=== PATIENT | female | born 1995 | race Caucasian/White ===

== ENCOUNTER 2019-01-01 12:10 | Inpatient (IN) | payer OTHER ==
[~2019-01-01] VITALS: Ht 162.6 cm; Wt 68.0 kg
[2019-01-01 12:20] VITALS: BP 113/69
--- NOTE | 2019-01-01 13:15 | NUR ---
PATIENT AMBULATED TO ER BED 2.
--- NOTE | 2019-01-01 13:20 | NUR ---
23 Y FEMALE PT C/O R FLANK PAIN RADIATES TO BACK X6 DAYS, PT IS X17 WEEKS , , LMP - 08/31/19 . PT DESCRIBES PAIN SHARP 06/08. ALSO REPORTS FEVER/CHILLS/NIGHT SWEATS, DENIES FEVER, TOOK TYLENOL X1 HOUR AGO. NO OTHER COMPLAINTS. AA0X4. VSS AT THIS TIME. BED IS DOWN, LOCKED, BED RAIL X 1, ERMD NOTIFIED. PMH---DM ALLERGIES---PCN
--- NOTE | 2019-01-01 13:22 | NUR ---
MOTHER AT BEDSIDE
[2019-01-01 14:19] LABS: APPEARANCE,URINE SL CLOUDY (CLEAR); BILIRUBIN,URINE NEGATIVE (NEGATIVE); BLOOD, URINE 1+ (NEGATIVE); COLOR,URINE YELLOW (YELLOW); LEUKOCYTE ESTERASE ,URINE 3+ (NEGATIVE); NITRITE, URINE POSITIVE (NEGATIVE); PH,URINE 6.5 (5.0-9.0); UGLUCOSE NEGATIVE (NEGATIVE)
[2019-01-01] MEDS ORDERED: NACL 0.9% 1,000 ML IV ONE (14:30)
[2019-01-01 14:35] LABS: WBC,URINE >25 (MANY) /HPF (0-5)
--- NOTE | 2019-01-01 15:03 | NUR ---
STREP THROAT COLLECTED
[2019-01-01 15:05] LABS: BASOPHILS % (AUTO) 0.1 % (0.0-2.0); EOSINOPHILS % (AUTO) 0.1 % (0.0-4.0); HEMATOCRIT 34.3 % (36-48); HEMOGLOBIN 11.4 g/dL (12.0-16.0); LYMPHOCYTES # (AUTO) 0.8 K/uL (2.5-16.5); LYMPHOCYTES % (AUTO) 5.9 % (20.5-51.1); MEAN CORPUSCULAR HEMOGLOBIN 29 pg (27-31); MEAN CORPUSCULAR HGB CONC 33 g/dL (33-37); MEAN CORPUSCULAR VOLUME 88.2 fL (80-94); MONOCYTES # (AUTO) 1.4 K/uL (0.8-1.0); MONOCYTES % (AUTO) 10.1 % (1.7-9.3); NEUTROPHILS # (AUTO) 11.8 K/uL (1.8-7.7); NEUTROPHILS % (AUTO) 83.8 % (42.2-75.2); PLATELET COUNT (AUTO) 195 K/uL (140-450); RED BLOOD CELL COUNT(AUTO) 3.89 MIL/uL (4.20-5.40); WHITE BLOOD COUNT (AUTO) 14.1 K/uL (4.8-10.8)
[2019-01-01 15:38] LABS: ANION GAP 14.4 (8-16); CARBON DIOXIDE 22.8 mmol/L (21-32); CREATININE 0.6 mg/dL (0.6-1.3); POTASSIUM 3.2 mmol/L (3.5-5.1)
[2019-01-01 15:41] LABS: TOTAL BILIRUBIN 0.2 mg/dL (0.0-1.0)
--- NOTE | 2019-01-01 16:30 | NUR ---
TACHYCARDIA HR IN THE 110s. PT IS AA0X4.
[2019-01-01] MEDS ORDERED: cefTRIAXone 1,000 MG VIAL ONE (18:15)
--- NOTE | 2019-01-01 18:55 | NUR ---
PT SLEEPING IN BED.
--- NOTE | 2019-01-01 19:30 | NUR ---
IV WONT. FLUSH OR RU N ANTIBIOTICS, NEW IV STARTED
--- NOTE | 2019-01-01 20:20 | NUR ---
Patient will be admitted to care of . Admited to [facility]. Will go to room 105B. Belongings list completed. Report to MARY.
[2019-01-01 21:15] VITALS: BP 115/52
--- NOTE | 2019-01-01 21:15 | NUR ---
PT ARRIVED VIA GURNEY AND AMBULATED TO BED. RECEIVED REPORT FROM ER NURSE AT BEDSIDE. PT RESTING IN BED, AOX4, ON ROOM AIR WITH LEFT AC #22 RUNNING ROCEPHIN. DISCUSSED PLAN OF CARE AND PT VERBALIZED UNDERSTANDING. NO S/S OF RESPIRATORY DISTRESS OR DISCOMFORT NOTED AT THIS TIME. VITAL SIGNS TAKEN AND MRSA NASAL SWAB COLLECTED. ORIENTED PT TO BEDROOM, BATHROOM, CALL LIGHT AND BED. BED IN LOWEST POSITION, BED BREAKS ON, BOTH SIDE RAILS UP. BEDSIDE TABLE AND CALL LIGHT ARE WITHIN REACH. WILL CONTINUE TO MONITOR.
[2019-01-01] MEDS: ACETAMINOPHEN 325 MG TAB PO PRN (21:53)
--- NOTE | 2019-01-01 21:53 | NUR ---
IVF Walt FINNEY GIVEN DUE TO DECREASE K+ AND TYLENOL GIVEN FOR FEVER. PT TOLERATED WELL. NO S/S OF RESPIRATORY DISTRESS OR DISCOMFORT NOTED AT THIS TIME. WILL CONTINUE TO MONITOR.
[2019-01-01] MEDS ORDERED: POTASSIUM CHLORIDE 10 MEQ TABER PO SCH (22:00)
[2019-01-01] MEDS ORDERED: DEXT 5% /NACL 0.9% 1,000 ML IV SCH (22:00)
--- NOTE | 2019-01-02 | NUR ---
VITAL SIGNS TAKEN AND TOLERATED WELL. NO S/S OF RESPIRATORY DISTRESS OR DISCOMFORT NOTED AT THIS TIME. WILL CONTINUE TO MONITOR.
[2019-01-02] MEDS: NACL 0.9% 1,000 ML IV SCH ×2 (00:19→10:56)
--- NOTE | 2019-01-02 01:43 | NUR ---
HEART RATE 136
--- NOTE | 2019-01-02 02:00 | NUR ---
PT SLEEPING AT THIS TIME. NO S/S OF RESPIRATORY DISTRESS OR DISCOMFORT NOTED AT THIS TIME. WILL CONTINUE TO MONITOR.
--- NOTE | 2019-01-02 04:00 | NUR ---
PT CONTINUES TO SLEEP IN BED. NO S/S OF RESPIRATORY DISTRESS OR DISCOMFORT NOTED AT THIS TIME. WILL CONTINUE TO MONITOR.
--- NOTE | 2019-01-02 06:00 | NUR ---
PT RESTING IN BED. NO S/S OF RESPIRATORY DISTRESS OR DISCOMFORT NOTED AT THIS TIME. WILL CONTINUE TO MONITOR.
[2019-01-02] MEDS ORDERED: DEXTROSE 50% 50 ML SYR IVP PRN (06:15)
[2019-01-02] MEDS ORDERED: INSULIN LISPRO SLIDING SCALE 100 UNITS/ML VIAL SUBQ PRN (06:15)
[2019-01-02] MEDS: BLOOD GLUCOSE MONITORING 1 DEV DEV FS SCH ×4 (06:32→19:56)
--- NOTE | 2019-01-02 07:29 | NUR ---
ENDORSED PT CARE TO DAY SHIFT NURSE ERNIE FOR CONTINUITY OF CARE.
--- NOTE | 2019-01-02 07:30 | NUR ---
RECEIVED PT ON BED AAOX4. NO SOB NOTED. NO C/O PAIN AT THIS TIME. IV TO LAC PATENT AND INTACT. CHEST CLEAR. ABDOMEN SOFT, BOWEL SOUNDS PRESENT. MOTHER AT THE BEDSIDE. INSTRUCTED PT TO CALL FOR ASSISTANCE. CALL LIGHT WITHIN REACH, PT VERBALIZED UNDERSTANDING.
[2019-01-02 07:35] LABS: BASOPHILS % (AUTO) 0.2 % (0.0-2.0); EOSINOPHILS % (AUTO) 0.3 % (0.0-4.0); HEMATOCRIT 32.5 % (36-48); HEMOGLOBIN 10.9 g/dL (12.0-16.0); LYMPHOCYTES # (AUTO) 1.2 K/uL (2.5-16.5); LYMPHOCYTES % (AUTO) 11.2 % (20.5-51.1); MEAN CORPUSCULAR HEMOGLOBIN 30 pg (27-31); MEAN CORPUSCULAR HGB CONC 34 g/dL (33-37); MEAN CORPUSCULAR VOLUME 88.3 fL (80-94); MONOCYTES # (AUTO) 0.9 K/uL (0.8-1.0); MONOCYTES % (AUTO) 8.1 % (1.7-9.3); NEUTROPHILS # (AUTO) 8.8 K/uL (1.8-7.7); NEUTROPHILS % (AUTO) 80.2 % (42.2-75.2); PLATELET COUNT (AUTO) 214 K/uL (140-450); RED BLOOD CELL COUNT(AUTO) 3.68 MIL/uL (4.20-5.40); RED CELL DISTRIBUTION WIDTH 14.8 % (11.6-13.7)
[2019-01-02 07:59] LABS: ALBUMIN 1.9 g/dL (3.4-5.0); ANION GAP 15.5 (8-16); CARBON DIOXIDE 21.8 mmol/L (21-32); CREATININE 0.6 mg/dL (0.6-1.3); POTASSIUM 3.3 mmol/L (3.5-5.1); TOTAL BILIRUBIN 0.1 mg/dL (0.0-1.0)
[2019-01-02 08:00] VITALS: BP 117/64
--- NOTE | 2019-01-02 08:22 | NUR ---
PATIENT HAS BEEN SCREENED AND CATEGORIZED LOW NUTRITION RISK. PATIENT WILL BE SEEN WITHIN 7 DAYS OF ADMISSION. 01/07/[address]
--- NOTE | 2019-01-02 10:25 | NUR ---
PT SEEN BY DR. SPICER WITH NEW ORDER.
[2019-01-02] MEDS ORDERED: MULTIVIT/MIN/CA/FE/FA 1 TAB PO SCH (11:00)
--- NOTE | 2019-01-02 11:30 | NUR ---
pt's FHT checked by Richi-RN, 152 bpm.
--- NOTE | 2019-01-02 13:05 | NUR ---
PT AWAKE, TALKING TO PARENTS AT THE BEDSIDE. NO COMPLAINTS MADE.
--- NOTE | 2019-01-02 15:40 | NUR ---
PT RESTING. NO SOB NOTED. NO SIGNS OF PAIN.
[2019-01-02 16:00] VITALS: BP 114/66
--- NOTE | 2019-01-02 16:30 | NUR ---
BLOOD SUGAR CHECKED AC DINNER: 101 MG/DL
[2019-01-02] MEDS: ACETAMINOPHEN 325 MG TAB PO PRN (18:08)
--- NOTE | 2019-01-02 18:44 | NUR ---
PT STATED SHE IS A LITTLE BIT SWEATY AFTER EATING DINNER. BLOOD SUGAR CHECKED, 100 MG/DL.
--- NOTE | 2019-01-02 18:54 | NUR ---
PT AWAKE, ON THE PHONE. NO COMPLAINTS MADE. WILL ENDORSE TO NEXT SHIFT NURSE FOR CONTINUITY OF CARE.
--- NOTE | 2019-01-02 19:10 | NUR ---
RECEIVED REPORT FROM DAY SHIFT NURSE MACIE-RN AT BEDSIDE. PT RESTING IN BED-FAMILY AT BEDSIDE, AOX4, ON ROOM AIR WITH LEFT AC #22 RUNNING ROCEPHIN. DISCUSSED PLAN OF CARE AND PT VERBALIZED UNDERSTANDING. NO S/S OF RESPIRATORY DISTRESS OR DISCOMFORT NOTED AT THIS TIME. BED IN LOWEST POSITION, BED BREAKS ON, BOTH SIDE RAILS UP. BEDSIDE TABLE AND CALL LIGHT ARE WITHIN REACH. WILL CONTINUE TO MONITOR.
[2019-01-02 20:00] VITALS: BP 127/77
--- NOTE | 2019-01-02 20:00 | NUR ---
VITAL SIGNS TAKEN AND TOLERATED WELL. BLOOD GLUCOSE 110- NO INSULIN COVERAGE NEEDED. NO S/S OF RESPIRATORY DISTRESS OR DISCOMFORT NOTED AT THIS TIME. WILL CONTINUE TO MONITOR.
--- NOTE | 2019-01-02 21:34 | NUR ---
HEART TONE 139
--- NOTE | 2019-01-02 23:00 | NUR ---
PT SLEEPING IN BED. NO S/S OF RESPIRATORY DISTRESS OR DISCOMFORT NOTED AT THIS TIME. WILL CONTINUE TO MONITOR.
[2019-01-03] VITALS: BP 100/62
--- NOTE | 2019-01-03 | NUR ---
VITAL SIGNS TAKEN AND TOLERATED WELL. NO S/S OF RESPIRATORY DISTRESS OR DISCOMFORT NOTED AT THIS TIME. WILL CONTINUE TO MONITOR.
--- NOTE | 2019-01-03 02:00 | NUR ---
PT CONTINUES TO SLEEP IN BED. NO S/S OF RESPIRATORY DISTRESS OR DISCOMFORT NOTED AT THIS TIME. WILL CONTINUE TO MONITOR.
--- NOTE | 2019-01-03 04:00 | NUR ---
PT CONTINUES TO SLEEP IN BED. NO S/S OF RESPIRATORY DISTRESS OR DISCOMFORT NOTED AT THIS TIME. WILL CONTINUE TO MONITOR.
[2019-01-03] MEDS: BLOOD GLUCOSE MONITORING 1 DEV DEV FS SCH ×2 (06:12→12:15)
--- NOTE | 2019-01-03 06:13 | NUR ---
BLOOD GLUCOSE 72- NO INSULIN COVERAGE NEEDED. ORANGE JUICE GIVEN REQUESTED. NO S/S OF HYPOGLYCEMIA. NO S/S OF RESPIRATORY DISTRESS OR DISCOMFORT NOTED AT THIS TIME. WILL CONTINUE TO MONITOR.
--- NOTE | 2019-01-03 07:09 | NUR ---
ENDORSED PT CARE TO DAY SHIFT NURSE ERNIE FOR CONTINUITY OF CARE.
--- NOTE | 2019-01-03 07:30 | NUR ---
RECEIVED PT ON BED AAOX4. NO SOB NOTED. NO C/O PAIN AT THIS TIME. IV TO LAC PATENT AND INTACT. CHEST CLEAR. ABDOMEN SOFT, BOWEL SOUNDS PRESENT. INSTRUCTED PT TO CALL FOR ASSISTANCE. CALL LIGHT WITHIN REACH, PT VERBALIZED UNDERSTANDING.
[2019-01-03 07:54] VITALS: BP 96/52
[2019-01-03 07:58] LABS: BASOPHILS % (AUTO) 0.2 % (0.0-2.0); EOSINOPHILS % (AUTO) 0.3 % (0.0-4.0); HEMATOCRIT 29.4 % (36-48); LYMPHOCYTES # (AUTO) 1.3 K/uL (2.5-16.5); LYMPHOCYTES % (AUTO) 14.1 % (20.5-51.1); MEAN CORPUSCULAR HEMOGLOBIN 30 pg (27-31); MEAN CORPUSCULAR HGB CONC 34 g/dL (33-37); MEAN CORPUSCULAR VOLUME 87.2 fL (80-94); MONOCYTES # (AUTO) 0.6 K/uL (0.8-1.0); NEUTROPHILS # (AUTO) 7.2 K/uL (1.8-7.7); NEUTROPHILS % (AUTO) 78.4 % (42.2-75.2); PLATELET COUNT (AUTO) 219 K/uL (140-450); RED BLOOD CELL COUNT(AUTO) 3.37 MIL/uL (4.20-5.40); WHITE BLOOD COUNT (AUTO) 9.2 K/uL (4.8-10.8)
[2019-01-03] MEDS ORDERED: MULTIVIT/MIN/CA/FE/FA 1 TAB PO SCH (09:00)
--- NOTE | 2019-01-03 09:00 | NUR ---
pt's FHT checked by Richi-RN, 145 bpm.
[2019-01-03] MEDS ORDERED: CEPH500T PO (09:56)
[2019-01-03] MEDS ORDERED: PREN-380 PO (09:56)
--- NOTE | 2019-01-03 10:15 | NUR ---
PT SEEN BY DR. SPICER WITH NEW ORDERS.
[2019-01-03] MEDS ORDERED: INFLUENZA VIRUS VACCINE QUAD 0.5 ML SYR IMVAC PRN (10:45)
--- NOTE | 2019-01-03 12:15 | NUR ---
pt ate 80% of lunch served, food tolerate well. no complaints made.
--- NOTE | 2019-01-03 13:38 | NUR ---
flu vaccine administered.
--- NOTE | 2019-01-03 13:40 | NUR ---
Rocephin ivpb administered early as ordered.
--- NOTE | 2019-01-03 15:00 | NUR ---
discharge instructions and prescriptions given to pt which verbalized full understanding of the teachings/instructions and the need to follow up with pt's own PCP and OB-BIKE TECHNICIAN. pt stated she has an appointment with Dr. Brantley this week. arm bands and iv removed, cannula tip intact.
--- NOTE | 2019-01-03 15:15 | NUR ---
pt wheeled to the front lobby. no complaints made and appreciative with the care. pt is discharge home in stable condition with parents.
--- NOTE | 2019-01-04 10:38 | NUR ---
CALLED DR. BAIRD'S OFFICE, [phone] AND SPOKE WITH FARHAT AND SET UP FOLLOW UP APPOINTMENT FOR December AT 10:30A.M. ADDRESS [address] [place] [address], [address] I CALLED THE PATIENT AND GAVE HER THE INFORMATION.
== END 2019-01-03 15:15 | disposition home or self-care (01) | DRG 566 ==
LOC: MED 12:10 → EDBD 12:10 → MTU 19:22
PROVIDERS: ADMIT Internal Medicine Pulmonary Disease; ATTEND Internal Medicine Pulmonary Disease
DX: O23.02 Infections of kidney in pregnancy, second trimester (principal); E87.1 Hypo-osmolality and hyponatremia; O24.912 Unspecified diabetes mellitus in pregnancy, second trimester; O98.812 Other maternal infectious and parasitic diseases complicating pregnancy, second trimester; O26.892 Other specified pregnancy related conditions, second trimester; O99.282 Endocrine, nutritional and metabolic diseases complicating pregnancy, second trimester; Z3A.17 17 weeks gestation of pregnancy; Z23 Encounter for immunization; Z88.0 Allergy status to penicillin; E87.6 Hypokalemia; K82.8 Other specified diseases of gallbladder
CPT/HCPCS: 36415; 76700; 76705; 80053; 81001; 81025; 82948; 83036; 83690; 85025; 87081; 87086; 87186; 99285; J0696; J1815; J7030; J7042; J7060; Q0092